=== PATIENT | female | born 1990 | race Caucasian/White ===

== ENCOUNTER 2016-11-07 01:43 | Emergency (ER) | payer OTHER ==
[~2016-11-07] VITALS: Ht 175.3 cm; Wt 67.0 kg
[~2016-11-07 01:43] MED LIST: ALBU18HF INH; BACTDS PO; CYCL-319 PO; HYDR-3498 PO; IBUP-1542 PO; NAPR-260 PO; PRED20TA PO; SODI126M NASAL
[2016-11-07 02:03] VITALS: Ht 175.3 cm; Wt 67.0 kg
[2016-11-07] MEDS ORDERED: IBUP-1542 PO (04:13)
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
[2016-11-07 04:28] VITALS: BP 119/69; PULSE 85; TEMP 98.3
== END 2016-11-07 04:31 | disposition home or self-care (01) ==
LOC: FTE 01:43
DX: S89.92XA Unspecified injury of left lower leg, initial encounter (principal); J45.909 Unspecified asthma, uncomplicated; W22.8XXA Striking against or struck by other objects, initial encounter; Y92.9 Unspecified place or not applicable
CPT/HCPCS: 99283

== ENCOUNTER 2016-12-20 04:04 | Emergency (ER) | payer OTHER ==
[~2016-12-20] VITALS: Ht 175.3 cm; Wt 69.0 kg
[2016-12-20 04:13] VITALS: Ht 175.3 cm; Wt 69.0 kg
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
--- NOTE | 2016-12-20 05:39 | RADRPT ---
PROCEDURE: XR nasal bones. CLINICAL INDICATION: Trauma TECHNIQUE: Three views were performed. COMPARISON: No prior studies are available for comparison. FINDINGS: No definite nasal bone fracture is seen. The nasal spine of the maxilla appears intact. There is sl ight rightward deviation of the nasal septum. No other bony or soft tissue abnormality is seen. IMPRESSION: No definite nasal bone fracture but rightward deviation of the nasal septum. CT may be obtained if there is strong clinical suspicion for fracture. RPTAT: HLBE Erica Henning Physician Date Time Electronically viewed and signed by Erica Henning Physician on 12/20/2016 05:39 LE/
[2016-12-20] MEDS ORDERED: TRAM50TA2 PO (05:47)
== END 2016-12-20 06:08 | disposition home or self-care (01) ==
LOC: FTE 04:04
DX: J34.2 Deviated nasal septum (principal); S00.33XA Contusion of nose, initial encounter; J45.909 Unspecified asthma, uncomplicated; W22.09XA Striking against other stationary object, initial encounter; Y92.9 Unspecified place or not applicable
CPT/HCPCS: 70160

== ENCOUNTER 2017-07-20 01:28 | Emergency (ER) | payer OTHER ==
[~2017-07-20] VITALS: Ht 175.3 cm; Wt 71.9 kg
[~2017-07-20 01:28] MED LIST changes: +TRAM50TA2 PO
[2017-07-20 01:33] VITALS: Ht 175.3 cm; Wt 71.9 kg
--- NOTE | 2017-07-20 04:36 | RADRPT ---
PROCEDURE: CT facial bones CLINICAL INDICATION: Trauma, left eye pain. TECHNIQUE: Spiral CT images through the facial bones without contrast. Multiplanar reconstruction s. The CTDIvol is 29.46 mGy and the DLP is 553.20 mGy-cm. One or more of the following dose reduct ion techniques were used: automated exposure control, adjustment of the mA and/or kV according to pa tient size, or use of iterative reconstruction technique. DICOM images are available. DICOM images are available. COMPARISON: CT brain same date. FINDINGS: The osseous structures are intact with no evidence of fracture. The orbits, as visualized, appear i ntact. . Mild soft tissue swelling overlies the left orbit and nasal ala . A right maxillary sinus retention cyst or polyp is present. IMPRESSION: 1. No acute fracture. 2. Mild soft tissue swelling overlying the left orbit and nasal ala. RPTAT: HRSR Physician Mallory Date Time Electronically viewed and signed by Physician Mallory on 07/20/2017 04:36 RR/
--- NOTE | 2017-07-20 04:37 | RADRPT ---
PROCEDURE: CT brain without contrast. CLINICAL INDICATION: Injury and pain. TECHNIQUE: CT scan of the brain was performed on a multi-detector high-resolution CT scanner. Co ntiguous axial images were obtained from the skull base to the vertex without intravenous contrast. Coronal and sagittal reformatted images were also obtained. Images were reviewed on the PACS works [employer]. DICOM images are available. One or more of the following dose reduction techniques were used: - Automated exposure control. - Adjustment of the mA and/or kV according to patient size. - Use of iterative reconstruction technique. Exam CTD/vol = 45.00 mGy. Total exam DLP = 720.23 mGy-cm. COMPARISON: None. FINDINGS: The ventricles and cortical sulci are within normal limits for patient's age. There are no areas of abnormal attenuation within the brain parenchyma. There is no mass effect or midline shift. There is no intracranial hemorrhage or abnormal extra-axial collection. The calvarium is intact. There is no evidence of fracture. Visualized paranasal sinuses and mastoid air cells are clear. IMPRESSION: No acute intracranial abnormality identified. .Ivan Jasso MD, MD Date Time Electronically viewed and signed by .Ivan Jasso MD, MD on 07/20/2017 04:37 .T/
[2017-07-20] MEDS ORDERED: ACET500C5 PO (04:54)
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
== END 2017-07-20 05:07 | disposition home or self-care (01) ==
LOC: FTE 01:28
DX: S05.12XA Contusion of eyeball and orbital tissues, left eye, initial encounter (principal); J45.909 Unspecified asthma, uncomplicated; Y08.89XA Assault by other specified means, initial encounter
CPT/HCPCS: 70450; 70486; Z7502

== ENCOUNTER 2018-02-07 00:23 | Emergency (ER) | END 2018-02-07 05:50 | disposition left against medical advice (07) ==

== ENCOUNTER 2018-12-05 04:27 | Emergency (ER) | payer SELFPAY ==
[~2018-12-05] VITALS: Ht 175.3 cm; Wt 71.0 kg
[~2018-12-05 04:27] MED LIST changes: +ACET500C5 PO; +ALBU18HF INHALATION; +AZIT250T PO; +BENZ-6 PO; -CYCL-319 PO; +CYCL10TA7 PO; -NAPR-260 PO; +NAPR-985 PO
[2018-12-05 04:30] VITALS: BP 125/74; PULSE 114; RESP 18; Ht 175.3 cm; Wt 71.0 kg
== END 2018-12-05 07:04 | disposition left against medical advice (07) ==
LOC: FTE 04:27
DX: Z53.21 Procedure and treatment not carried out due to patient leaving prior to being seen by health care provider (principal)

== ENCOUNTER 2019-05-08 07:17 | Emergency (ER) | payer MEDICAID ==
[~2019-05-08] VITALS: Ht 175.3 cm; Wt 73.2 kg
[2019-05-08 07:20] VITALS: Ht 175.3 cm; Wt 73.2 kg
== END 2019-05-08 09:07 | disposition home or self-care (01) ==
LOC: FTE 07:17
DX: T58.11XA Toxic effect of carbon monoxide from utility gas, accidental (unintentional), initial encounter (principal); J45.901 Unspecified asthma with (acute) exacerbation; X58.XXXA Exposure to other specified factors, initial encounter; Y92.009 Unspecified place in unspecified non-institutional (private) residence as the place of occurrence of the external cause
CPT/HCPCS: 71045; Z7502